=== PATIENT | female | born 1975 | race Caucasian/White ===

== ENCOUNTER 2022-09-26 12:20 | Emergency (ER) | payer OTHER ==
[~2022-09-26] VITALS: Ht 157.5 cm; Wt 57.1 kg
[~2022-09-26 12:20] MED LIST: ANKLE BRACE TOP; BACTRIM DS1 TAB PO; FLEXERIL PO; NAPROSYN500 MG PO; PYRIDIUM200 MG PO
[2022-09-26 12:24] VITALS: BP 132/82
[2022-09-26 12:31] VITALS: BP 127/83
[2022-09-26 13:00] VITALS: BP 124/73
[2022-09-26 13:30] VITALS: BP 125/76
[2022-09-26 13:47] VITALS: BP 125/76
== END 2022-09-26 14:00 | disposition home or self-care (01) | DRG 90 ==
LOC: ED 12:20
DX: S06.0X0A Concussion without loss of consciousness, initial encounter (principal); V80.010A Animal-rider injured by fall from or being thrown from horse in noncollision accident, initial encounter; R40.2412 Glasgow coma scale score 13-15, at arrival to emergency department; R51.9 Headache, unspecified